=== PATIENT | female | born 1955 | race Caucasian/White ===

== ENCOUNTER → 2019-01-03 | Outpatient (CLI) | payer MEDICARE ==
[~2019-01-03] MED LIST: ASPI81CH PO; BACL10 PO; DIAZ5 PO; TRAM50 PO
== END | disposition home or self-care (01) ==
LOC: PLD 12:14 → LAB SHORT 12:14
DX: D48.5 Neoplasm of uncertain behavior of skin (principal)
CPT/HCPCS: 88305

== ENCOUNTER 2019-08-16 07:00 | Day surgery (SDC) | payer MEDICARE ==
[~2019-08-16] VITALS: Ht 165.1 cm; Wt 104.6 kg
[2019-08-16] MEDS ORDERED: PRED20 (08:17)
--- NOTE | 2019-08-16 08:25 | NUR ---
08/16/19 0825 Khloe Dickerson 1 TRY PASSED OUT RH ARMS MOVING NEEDLE FELL OUT 2 TRY HR GOOD
== END 2019-08-16 09:37 | disposition home or self-care (01) ==
LOC: ORSCSDS 07:00
PROVIDERS: Surgery
PROC: 0DBM8ZX Excision of Descending Colon, Via Natural or Artificial Opening Endoscopic, Diagnostic (ICD-10-PCS; principal; 2019-08-16 08:30)
DX: Z12.11 Encounter for screening for malignant neoplasm of colon (principal); D12.4 Benign neoplasm of descending colon; Z80.0 Family history of malignant neoplasm of digestive organs; Z83.71 Family history of colonic polyps; K64.8 Other hemorrhoids; M79.7 Fibromyalgia; F41.8 Other specified anxiety disorders; E11.9 Type 2 diabetes mellitus without complications; Z79.82 Long term (current) use of aspirin; Z79.84 Long term (current) use of oral hypoglycemic drugs; Z79.899 Other long term (current) drug therapy
CPT/HCPCS: 82947; 88305; J2704; J7120

== ENCOUNTER 2021-07-05 20:45 | Inpatient (IN) | payer MEDICARE ==
[~2021-07-05] VITALS: Ht 165.1 cm; Wt 98.1 kg
[~2021-07-05 20:45] MED LIST changes: +PRED20
[2021-07-05] MEDS ORDERED: DULO60 PO (20:53)
[2021-07-05] MEDS ORDERED: METF500 PO (20:53)
[2021-07-05] MEDS ORDERED: GLIP2.5ER PO (20:54)
[2021-07-05 21:13] LABS: BASOPHILS ABSOLUTE AUTO 0.02 K/mm3 (0.00-0.23); BASOPHILS PERCENT AUTO 0 % (0-2); EOSINOPHILS ABSOLUTE AUTO 0.17 K/mm3 (0.00-0.68); EOSINOPHILS PERCENT AUTO 2 % (0-6); Hematocrit 43.2 % (33.0-51.0); IMMATURE GRAN ABSOLUTE AUTO 0.02 K/mm3 (0.00-0.10); IMMATURE GRAN PERCENT AUTO 0 % (0-1); LYMPHOCYTES ABSOLUTE AUTO 1.86 K/mm3 (0.84-5.20); LYMPHOCYTES PERCENT AUTO 23 % (21-46); MONOCYTES ABSOLUTE AUTO 0.59 K/mm3 (0.16-1.47); MONOCYTES PERCENT AUTO 7 % (4-13); Mean Corpuscular HGB 29.9 pg (26.0-34.0); Mean Corpuscular HGB Conc 32.4 g/dL (31.5-36.5); Mean Corpuscular Volume 92 fL (80-100); Mean Platelet Volume 10.3 fL (9.1-12.4); NEUTROPHILS ABSOLUTE AUTO 5.34 K/mm3 (1.96-9.15); NEUTROPHILS PERCENT AUTO 67 % (41-73); Platelet Count 246 K/mm3 (150-400); RDW Coefficient Variation 12.1 % (11.7-14.2); RDW Standard Deviation 41.1 fL (35.1-46.3); Red Blood Cell Count 4.68 M/mm3 (3.80-5.20)
[2021-07-05 21:35] LABS: Alanine Aminotransfer (ALT/SGP 25 U/L (12-78); Albumin, Blood 3.3 g/dL (3.4-5.0); Albumin/Globulin Ratio 0.8 (0.8-1.8); Alk Phos 59 U/L (50-136); Anion Gap 4 mmol/L (6-16); Aspartate Aminotrans (AST/SGOT 15 U/L (12-37); Bilirubin, Total 0.3 mg/dL (0.1-1.0); Blood Urea Nitrogen 27 mg/dL (8-24); Bun/Creatinine Ratio 40.1 (12.0-20.0); CO2, Blood 30 mmol/L (21-32); Chloride, Blood 104 mmol/L (98-108); Creatinine, Blood 0.67 mg/dL (0.40-1.00); Glomerular Filtration Rate >60 (60-); Glucose, Blood 205 mg/dL (70-99); Potassium, Blood 4.7 mmol/L (3.5-5.5); Sodium, Blood 138 mmol/L (136-145); Total Protein, Blood 7.3 g/dL (6.4-8.2)
[2021-07-06 00:17] LABS: SARS-Cov-2 (COVID-19) PCR, MMC NEGATIVE (NEGATIVE)
[2021-07-06 00:36] LABS: Source, Urine Clean Catch
[2021-07-06 00:38] LABS: Bilirubin, Urine Neg (Neg); Blood, Urine Neg (Neg); Glucose Qualitative, Urine 1+ (Neg); Ketones, Urine Neg (Neg); Leukocyte Esterase, Urine Neg (Neg); Nitrite, Urine Neg (Neg); Protein, Urine Neg (Neg); Urobilinogen, Urine NORM (Normal)
[2021-07-06 00:39] LABS: Appearance, Urine Clear (Clear); Color, Urine Yellow (P-Yellow)
[2021-07-06 04:50] LABS: Hematocrit 44.4 % (33.0-51.0); Hemoglobin 14.4 g/dL (11.5-16.0); Mean Corpuscular HGB 30.2 pg (26.0-34.0); Mean Corpuscular HGB Conc 32.4 g/dL (31.5-36.5); Mean Corpuscular Volume 93 fL (80-100); Mean Platelet Volume 10.4 fL (9.1-12.4); Platelet Count 220 K/mm3 (150-400); RDW Standard Deviation 41.6 fL (35.1-46.3); Red Blood Cell Count 4.77 M/mm3 (3.80-5.20); White Blood Cell Count 12.38 K/mm3 (4.00-11.30)
[2021-07-06 05:16] LABS: Anion Gap 5 mmol/L (6-16); Blood Urea Nitrogen 19 mg/dL (8-24); Bun/Creatinine Ratio 30.9 (12.0-20.0); CO2, Blood 27 mmol/L (21-32); Calcium, Blood 8.1 mg/dL (8.5-10.1); Chloride, Blood 106 mmol/L (98-108); Creatinine, Blood 0.61 mg/dL (0.40-1.00); Glomerular Filtration Rate >60 (60-); Glucose, Blood 199 mg/dL (70-99); Potassium, Blood 4.2 mmol/L (3.5-5.5); Sodium, Blood 138 mmol/L (136-145)
--- NOTE | 2021-07-06 07:34 | NUR ---
SHIFT SUMMARY PT WAS A NEW ADMIT DURING THE NIGHT, ARRIVING ON THE FLOOR AT. SHE WAS ADMITTED WITH A SBO. PT IS A 65 Y/O FEMALE, A&O X 4 WITH ANXIETY. PT C/O PAIN AND NAUSEA THROUGHOUT THE NIGHT WHEN AWAKE, WHICH WAS MILDLY CONTROLLED WITH IV ZOFRAN AND FENTANYL, BUT "IT DOESN'T LAST VERY LONG". PT DID SLEEP OFF AND ON DURING THE NIGHT. NO S/O SOB. VITAL SIGNS STABLE. NO ACUTE CHANGES IN PT CONDITION NOTED SINCE ADMISSION. WILL CONTINUE TO MONITOR AND TREAT PER EMAR UNTIL HAND OFF TO DAY SHIFT RN.
--- NOTE | 2021-07-06 19:48 | NUR ---
PT IN SURGERY AT THIS TIME. AWAITING TO HEAR IF PT WILL RETURN POST-OPERATIVELY.
--- NOTE | 2021-07-06 21:15 | NUR ---
REPORT GIVEN TO KRUNAL, BIOASSAYIST AND PT TO T/F TO ROOM 227 POST OPERATIVEY. BELONGINGS AND MEDS BEING TAKEN TO ROOM BY JACI LEDESMA.
--- NOTE | 2021-07-06 22:02 | NUR ---
PT ARRIVED TO ROOM 227 FROM PACU. PT DROWSY, RESPONDS TO VERBAL STIMULI. VSS, SATS >90% ON 3LO2 NC. PT REP MILD NAUSEA, REP ABD PAIN 5/10, PT REP PAIN IMPROVED SINCE SURGERY. DAVID DRESSING CDI, SEAL AND SX INTACT. ABD SOFT TO PALP, BT HYPO. CALL LIGHT IN REACH. WILL MONITOR AND TX PER ORDERS.
[2021-07-07 04:49] LABS: BASOPHILS ABSOLUTE AUTO 0.02 K/mm3 (0.00-0.23); BASOPHILS PERCENT AUTO 0 % (0-2); EOSINOPHILS PERCENT AUTO 0 % (0-6); Hematocrit 41.8 % (33.0-51.0); Hemoglobin 13.4 g/dL (11.5-16.0); IMMATURE GRAN ABSOLUTE AUTO 0.06 K/mm3 (0.00-0.10); IMMATURE GRAN PERCENT AUTO 0 % (0-1); LYMPHOCYTES ABSOLUTE AUTO 1.34 K/mm3 (0.84-5.20); LYMPHOCYTES PERCENT AUTO 9 % (21-46); MONOCYTES ABSOLUTE AUTO 0.98 K/mm3 (0.16-1.47); MONOCYTES PERCENT AUTO 6 % (4-13); Mean Corpuscular HGB 30.3 pg (26.0-34.0); Mean Corpuscular HGB Conc 32.1 g/dL (31.5-36.5); Mean Corpuscular Volume 95 fL (80-100); Mean Platelet Volume 10.5 fL (9.1-12.4); NEUTROPHILS ABSOLUTE AUTO 12.89 K/mm3 (1.96-9.15); NEUTROPHILS PERCENT AUTO 84 % (41-73); Platelet Count 258 K/mm3 (150-400); RDW Coefficient Variation 12.2 % (11.7-14.2); RDW Standard Deviation 42.8 fL (35.1-46.3); Red Blood Cell Count 4.42 M/mm3 (3.80-5.20); White Blood Cell Count 15.29 K/mm3 (4.00-11.30)
[2021-07-07 05:08] LABS: Anion Gap 5 mmol/L (6-16); Blood Urea Nitrogen 21 mg/dL (8-24); Bun/Creatinine Ratio 28.5 (12.0-20.0); CO2, Blood 29 mmol/L (21-32); Calcium, Blood 8.3 mg/dL (8.5-10.1); Chloride, Blood 105 mmol/L (98-108); Creatinine, Blood 0.74 mg/dL (0.40-1.00); Glomerular Filtration Rate >60 (60-); Glucose, Blood 178 mg/dL (70-99); Potassium, Blood 4.4 mmol/L (3.5-5.5); Sodium, Blood 139 mmol/L (136-145)
--- NOTE | 2021-07-07 06:37 | NUR ---
POD 1 S/P EX LAP. PT VSS T/O NIGHT, O2 TITRATED DOWN TO 2LNC; LUNGS CLEAR/DIM. DAVID DRESSING CDI. PAIN MGD PER EMAR. PT LINDA CL PO, REP MILD NAUSEA EARLY IN NIGHT, ZOFRAN GIVEN PER EMAR; NO EMESIS. PT ANXIOUS AT TIMES, SUPPORT AND EDUCATION PRN.
--- NOTE | 2021-07-07 19:57 | NUR ---
SUMMARY: PT IS POD1 EX LAP. A/O, VSS. SURGICAL SITE/WOUND VAC WNL. PT PAINFUL TODAY AND DIFFICULT TO MANAGE PAIN. 2 NARCO GIVEN Q4, YET PT STILL RATING PAIN /10. DR. RAY NOTIFIED OF THIS THIS AFTERNOON AND DILAUDID ADDED TO EMAR. PT REPORTS 1 MG DILAUDID "IS THE ONLY THING THAT HELPS WITH THE PAIN". PT EDUCATED ABOUT RESPIRATORY STATUS AND GIVING DILAUDID SPARINGLY. PT HAS DENIED NAUSEA AND LINDA CLEAR LIQ DIET. REPORTS PASSING GAS TONIGHT AND "FEELING LIKE SHE MAY HAVE A BM". THIS MORNING PT REPORTED SOME DIZZINESS WITH STANDING, THIS HAS RESLOVED TONIGHT. NO ACUTE CONCERNS AT THIS TIME.
--- NOTE | 2021-07-08 05:00 | NUR ---
SHIFT SUMMARY: PT POD#2 FOR EX LAP. A%O X4. VS WNL. O2 STABLE ON RA. MIDLINE DAVID C/D/I WITHOUT DRG. ACTIVE BT IN UPPER QUADRANTS. ABD SOFT. PT REPORTS PASSING FLATUS. CONCERNED THAT SHE HAS NOT HAD A BM YET. DENIES N/V. PT TOLERATING CLEAR LIQUIDS AND HAS SUGAR FREE DRINKS AT BEDSIDE. ACHS CBG'S. PT REFUSING INSULIN. OUT OF BED TO BATHROOM INDPENDENTLY. PT NOT ANXIOUS THIS SHIFT. BEING MEDICATED WITH 1MG DILAUDID PER EMAR. PT REPORTS NORCO IS INEFFECTIVE AT MANAGING PAIN.
--- NOTE | 2021-07-08 17:44 | NUR ---
Late entry for service provided on 07/07/21. Valerie was resting and appeared comfortable and free of pain. She responded favorably to social attention, theological encouragement, and spiritual direction. She displayed clear signs of engagement and consolability.
--- NOTE | 2021-07-09 05:15 | NUR ---
SHIFT SUMMARY POD3 EXP LAP SMALL BOWEL RESECTION. AOX4. INDEPENDENT IN ROOM. PT HAS MIDLINE DAVID, SUCTIONING WELL. PT REPORTS ABD PAIN, PAIN MANAGED WITH 2 TAB OF PERCOCET X2. PT TOLERATING PO INTAKE. DENIES NAUSEA AND VOMITING. BT PRESENT ON ALL QUAD. PT HAS BEEN PASSING FLATUS. SHE ALSO HAD 1 MED LIQUID BM. PT ALSO AMBULATE IN THE HALLWAY LAST NIGHT BEFORE BED. VSS. AFEBRILE. CBG AT 158 LAST NIGHT. PT REPORTS THAT SHE IS NO LONGER EXPERIENCING DIZZINESS, FEELS WEAKER AND TIRED. ENC TO AMBULATE MORE TO REGAIN STRENGTH. PT IS UP IN CHAIR/RECLINER THIS MORNING AT 0400. CALL LIGHT WITHIN REACH. WILL PROVIDE REPORT TO ONCOMING NURSE.
[2021-07-09] MEDS ORDERED: DOCU100 PO (14:59)
[2021-07-09] MEDS ORDERED: ONDA4ODT MM (14:59)
--- NOTE | 2021-07-09 17:00 | NUR ---
DISCHARGE SUMMARY PT A&OX4, VSS, LEFT FLOOR VIA WC WITH ALL PERSONAL POSSESSIONS INCLUDING DC PACKET AND 1 NARC SCRIPT, 2 SCRIPTS CALLED INTO/TALKED TO PHARMACIST AT [facility]. DC INSTRUCTIONS PROVIDED. PT REP UNDERSTANDING THOSE INSTRUCTIONS. IV DC'D.
== END 2021-07-09 15:45 | disposition home or self-care (01) | DRG 330 ==
LOC: ER 20:45 → MEDS 20:46 → SURS 07-06 21:33
PROVIDERS: Emergency Medicine; Physician Assistant; Surgery; ADMIT Internal Medicine
PROC: 0DB80ZZ Excision of Small Intestine, Open Approach (ICD-10-PCS; principal; 2021-07-06 20:00)
PROC: 0DN80ZZ Release Small Intestine, Open Approach (ICD-10-PCS; 2021-07-06 20:00)
DX: K56.52 Intestinal adhesions [bands] with complete obstruction (principal); R18.8 Other ascites; Z20.822 Contact with and (suspected) exposure to COVID-19; F41.9 Anxiety disorder, unspecified; M79.7 Fibromyalgia; G89.29 Other chronic pain; E11.9 Type 2 diabetes mellitus without complications; M54.9 Dorsalgia, unspecified; Z90.710 Acquired absence of both cervix and uterus; Z90.49 Acquired absence of other specified parts of digestive tract; Z79.899 Other long term (current) drug therapy; Z79.84 Long term (current) use of oral hypoglycemic drugs; Z79.82 Long term (current) use of aspirin; Z88.8 Allergy status to other drugs, medicaments and biological substances
CPT/HCPCS: 36415; 74177; 80048; 80053; 81003; 82947; 84443; 85025; 85027; 88307; 93005; 93010; 96374; 96375; 96376; 99285-25; A9270; G0378; J0690; J1100; J1170; J1650; J1885; J2060; J2250; J2270; J2370; J2405; J2704; J3010; J7030; J7120; Q9967; U0004

== ENCOUNTER → 2021-08-18 | Outpatient (CLI) | payer MEDICARE ==
[~2021-08-18] MED LIST changes: +DOCU100 PO; +DULO60 PO; +GLIP2.5ER PO; +METF500 PO; +ONDA4ODT MM
== END | disposition home or self-care (01) ==
LOC: LAB SHORT 12:07 → LAB 12:07
DX: Z48.01 Encounter for change or removal of surgical wound dressing (principal)
CPT/HCPCS: 87070; 87205

== ENCOUNTER 2022-01-10 17:15 | Inpatient (IN) | payer MEDICARE ==
[~2022-01-10] VITALS: Ht 165.1 cm; Wt 100.7 kg
[~2022-01-10 17:15] MED LIST changes: +KETO10 PO; +METPRE4DP PO
[2022-01-10 18:07] LABS: BASOPHILS ABSOLUTE AUTO 0.05 K/mm3 (0.00-0.23); BASOPHILS PERCENT AUTO 0 % (0-2); EOSINOPHILS ABSOLUTE AUTO 0.11 K/mm3 (0.00-0.68); EOSINOPHILS PERCENT AUTO 1 % (0-6); Hematocrit 44.4 % (33.0-51.0); Hemoglobin 14.5 g/dL (11.5-16.0); IMMATURE GRAN ABSOLUTE AUTO 0.11 K/mm3 (0.00-0.10); IMMATURE GRAN PERCENT AUTO 1 % (0-1); LYMPHOCYTES ABSOLUTE AUTO 2.01 K/mm3 (0.84-5.20); LYMPHOCYTES PERCENT AUTO 12 % (21-46); MONOCYTES ABSOLUTE AUTO 0.78 K/mm3 (0.16-1.47); MONOCYTES PERCENT AUTO 5 % (4-13); Mean Corpuscular HGB 30.1 pg (26.0-34.0); Mean Corpuscular HGB Conc 32.7 g/dL (31.5-36.5); Mean Corpuscular Volume 92 fL (80-100); Mean Platelet Volume 10.4 fL (9.1-12.4); NEUTROPHILS ABSOLUTE AUTO 14.45 K/mm3 (1.96-9.15); NEUTROPHILS PERCENT AUTO 83 % (41-73); Platelet Count 257 K/mm3 (150-400); RDW Coefficient Variation 11.9 % (11.7-14.2); RDW Standard Deviation 40.9 fL (35.1-46.3); Red Blood Cell Count 4.81 M/mm3 (3.80-5.20); White Blood Cell Count 17.51 K/mm3 (4.00-11.30)
[2022-01-10 18:18] LABS: Alanine Aminotransfer (ALT/SGP 21 U/L (12-78); Albumin, Blood 3.5 g/dL (3.4-5.0); Albumin/Globulin Ratio 0.9 (0.8-1.8); Alk Phos 59 U/L (50-136); Anion Gap 5 mmol/L (6-16); Aspartate Aminotrans (AST/SGOT 12 U/L (12-37); Bilirubin, Total 0.3 mg/dL (0.1-1.0); Blood Urea Nitrogen 24 mg/dL (8-24); Bun/Creatinine Ratio 37.5 (12.0-20.0); CO2, Blood 28 mmol/L (21-32); Calcium, Blood 9.3 mg/dL (8.5-10.1); Chloride, Blood 103 mmol/L (98-108); Creatinine, Blood 0.64 mg/dL (0.40-1.00); Globulin, Blood 3.9 g/dL (2.2-4.0); Glomerular Filtration Rate >60 (60-); Glucose, Blood 206 mg/dL (70-99); Potassium, Blood 4.7 mmol/L (3.5-5.5); Sodium, Blood 136 mmol/L (136-145); Total Protein, Blood 7.4 g/dL (6.4-8.2)
[2022-01-10 19:02] LABS: Source, Urine Clean Catch
[2022-01-10 19:06] LABS: Bilirubin, Urine Neg (Neg); Blood, Urine 1+ (Neg); Glucose Qualitative, Urine Neg (Neg); Ketones, Urine Neg (Neg); Leukocyte Esterase, Urine Neg (Neg); Nitrite, Urine Neg (Neg); Protein, Urine Neg (Neg); Urobilinogen, Urine NORM (Normal)
[2022-01-10 19:18] LABS: Appearance, Urine Cloudy (Clear); Color, Urine Pale Yellow (P-Yellow)
[2022-01-10 19:19] LABS: Bacteria Rare /hpf; Squamous Epithelial Cells Rare /hpf (Few); White Blood Cells, Urine 0-2 /hpf (0-5)
--- NOTE | 2022-01-10 22:52 | NUR ---
ADMISSION: PATIENT IS RECIEVED FROM ER, REPORT WAS GIVEN VIA PHONE BY ANGELA HERNANDEZ RN. PATIENT IS ORIENTED TO THE ROOM AND CALL LIMA. REPORTING NAUSEA AND ABD. PAIN. VSS. NG TUBE IS CONNECTED TO ILWS, LR IS INFUSING @ 150MLS/HR. DR PRIEST IS CALLED, TO SOON TO GIVE ZOFRAN. ORDERS WERE OBTAINED TO CHANGE FREQUENCY OF ZOFRAN TO Q2H AND DILAUDID DOSE IS DECREASED TO AVOID OVER SEDATION.
[2022-01-11 05:29] LABS: BASOPHILS ABSOLUTE AUTO 0.04 K/mm3 (0.00-0.23); BASOPHILS PERCENT AUTO 0 % (0-2); EOSINOPHILS PERCENT AUTO 0 % (0-6); Hematocrit 50.6 % (33.0-51.0); Hemoglobin 16.2 g/dL (11.5-16.0); IMMATURE GRAN ABSOLUTE AUTO 0.16 K/mm3 (0.00-0.10); IMMATURE GRAN PERCENT AUTO 1 % (0-1); LYMPHOCYTES ABSOLUTE AUTO 1.06 K/mm3 (0.84-5.20); LYMPHOCYTES PERCENT AUTO 6 % (21-46); MONOCYTES ABSOLUTE AUTO 0.89 K/mm3 (0.16-1.47); MONOCYTES PERCENT AUTO 5 % (4-13); Mean Corpuscular HGB 29.6 pg (26.0-34.0); Mean Corpuscular Volume 93 fL (80-100); Mean Platelet Volume 10.3 fL (9.1-12.4); NEUTROPHILS ABSOLUTE AUTO 15.43 K/mm3 (1.96-9.15); NEUTROPHILS PERCENT AUTO 88 % (41-73); Platelet Count 252 K/mm3 (150-400); RDW Coefficient Variation 12.1 % (11.7-14.2); RDW Standard Deviation 41.7 fL (35.1-46.3); Red Blood Cell Count 5.47 M/mm3 (3.80-5.20); White Blood Cell Count 17.58 K/mm3 (4.00-11.30)
[2022-01-11 05:37] LABS: Alanine Aminotransfer (ALT/SGP 28 U/L (12-78); Albumin, Blood 3.6 g/dL (3.4-5.0); Albumin/Globulin Ratio 0.9 (0.8-1.8); Alk Phos 68 U/L (50-136); Anion Gap 9 mmol/L (6-16); Aspartate Aminotrans (AST/SGOT 13 U/L (12-37); Bilirubin, Total 0.4 mg/dL (0.1-1.0); Blood Urea Nitrogen 25 mg/dL (8-24); CO2, Blood 24 mmol/L (21-32); Calcium, Blood 9.2 mg/dL (8.5-10.1); Chloride, Blood 103 mmol/L (98-108); Creatinine, Blood 0.54 mg/dL (0.40-1.00); Globulin, Blood 4.2 g/dL (2.2-4.0); Glomerular Filtration Rate >60 (60-); Glucose, Blood 232 mg/dL (70-99); Potassium, Blood 4.9 mmol/L (3.5-5.5); Sodium, Blood 136 mmol/L (136-145); Total Protein, Blood 7.8 g/dL (6.4-8.2)
--- NOTE | 2022-01-11 18:51 | NUR ---
SHIFT SUMMARY; PATIENT PULLED HER NG TUBE OUT. CLOSE TO SHIFT CHANGE ATTEMPT TO CALL UNSUCCESSFUL SO IS NOTIFIED. IS NOTIFIED VIA CELL PHONE AND HE SAYS "NOT A PROBLEM. PATIENT IS VERY TEARY. COMPLAINS OF SORE THROAT. STOMACH SOFT NON TENDER. PATIENT PASSING GAS. COMPLAINS OF PAIN TO KNEE AND LOW BACK. TORADOL ADMIN WITH ZOFRAN PRIOR TO SHIFT CHANGE. PAULA PAGAN RN
[2022-01-12 05:04] LABS: Hematocrit 40.5 % (33.0-51.0); Hemoglobin 12.8 g/dL (11.5-16.0); Mean Corpuscular HGB 30.1 pg (26.0-34.0); Mean Corpuscular HGB Conc 31.6 g/dL (31.5-36.5); Mean Corpuscular Volume 95 fL (80-100); Mean Platelet Volume 10.6 fL (9.1-12.4); Platelet Count 195 K/mm3 (150-400); RDW Standard Deviation 41.6 fL (35.1-46.3); Red Blood Cell Count 4.25 M/mm3 (3.80-5.20); White Blood Cell Count 9.76 K/mm3 (4.00-11.30)
[2022-01-12 05:39] LABS: Anion Gap 5 mmol/L (6-16); Blood Urea Nitrogen 22 mg/dL (8-24); Bun/Creatinine Ratio 32.7 (12.0-20.0); CO2, Blood 27 mmol/L (21-32); Calcium, Blood 8.4 mg/dL (8.5-10.1); Chloride, Blood 106 mmol/L (98-108); Creatinine, Blood 0.67 mg/dL (0.40-1.00); Glomerular Filtration Rate >60 (60-); Glucose, Blood 158 mg/dL (70-99); Potassium, Blood 4.2 mmol/L (3.5-5.5); Sodium, Blood 138 mmol/L (136-145)
--- NOTE | 2022-01-12 06:21 | NUR ---
SHIFT SUMMARY: PATIENT HAS HYPOACTIVE BS, ABD. IS SOFTLY DISTENDED AND PATIENT IS PASSING FLATUS. PAIN IS MUCH IMPROVED UNTIL THIS MORNING. PATIENT REPORTED A CRAMPING PAIN IN LOWER ABD. 8/10. PATIENT IS TEARFUL AND EMOTIONALLY LIABLE. PRN DILAUDID WAS GIVEN X1 WITH GOOD EFFECT. LR IS INFUSING, PATIENT IS NPO BLOOD GLUCOSE CHECKS Q 6 H, 146 AND 154, NO COVERAGE GIVEN PER SCALE.
--- NOTE | 2022-01-12 18:25 | NUR ---
SHIFT SUMMARY; PATIENT HAD GASTROGRAPHEN (SP) STUDY THIS AFTERNOON. AFTER LAST ROUND OF XRAYS SHE HAD LARGE BOWEL MOVEMENT AND PROCEDED OVER THE NEXT 45 MINUTES TO HAVE 5 ADDITIONAL BOWEL MOVEMENTS. HER LAST FEW STOOLS WERE VERY LOOSE AND LIQUID. CALL TO DR. BEASLEY AND TO . WAS IN SURGERY HOWEVER PUNCHING MACHINE OPERATOR PASSED ON INFORMATION AND DR. SHELBY SAID THAT PATIENT COULD EAT "WHATEVER SHE WANTED TOO NOW" DINNER TRAY ORDERED FOR PATIENT AND SHE ATE 50% PATIENT COMPLAINS THIS BROOKE OF CRAMPING IN HER ABDOMEN AND HER STOMACH. CHEM BG REQUIRED NO COVERAGE DURING THE DAY. SHE IS AO X 4. HAS EPISODES OF ANXIETY NOTED AND WAS MEDICATED WITH LORAZEPAM 1MG IVP. WILL CONTINUE TO MONITOR THIS PATIENT CLOSELY UNTIL REPORT AND HAND OFF TO NOC SHIFT RN.
--- NOTE | 2022-01-13 04:38 | NUR ---
PATIENT IS A&O X4. POSSIBLE DISCHARGE TODAY PER MD REVIEW. PATIENT HAS ONGOING LOWER ABDOMEN PAIN DUR TO GASTROGRAFIN STUDY PER PATIENTS DIAGNOSIS OF SBO. PATIENT SLEPT MOST OF THE NIGHT, NO NEW CONCERNS. PRN TORADOL GIVEN PER PATIENT REQUEST FOR PAIN. CONTINUOUS LACTATED RINGER DISCONTINUED BY MD. DISCHARGE PENDING UNTIL MD APPROVAL WILL UPDATE ONCOMING NURSE UPON ARRIVAL.
--- NOTE | 2022-01-13 05:03 | NUR ---
UPON ARRIVAL REPORT GIVEN PATIENT WAS IN BED IN ROOM, ALERT & ORIENTED X4. PRN MEDICATIONS ZANAFLEX, PERCOSET, XANAX GIVEN. PATIENT RECIEVED VANCOMYCIN AT 2200. NO SIGNS OR SYMPOMS NOTED FROM VANCO INFUSION. PATIENT IN BED AND SLEPT FOR THE ENTIRE NIGHT UNTIL LAB DRAW AT 5 AM. WILL REPORT TO ONCOMING NURSE UPON ARRIVAL.
--- NOTE | 2022-01-13 08:44 | NUR ---
PATIENT LEFT AMA AT 0845. EDUCATION PROVIDED ON RISKS R/T LEAVING AMA. PT VERBALIZED UNDERSTANDING, AND STATED THAT SHE HAD APPTS TODAY, AND COULD NOT WAIT AROUND FOR THE MD TO ROUND. MED AWARE OF PT DECSION TO LEAVE AMA. IV REMOVED, PT SIGNED AMA FORM, RN SIGNED WITNESS. PT LEFT UNIT AT 0845.
== END 2022-01-13 08:44 | disposition left against medical advice (07) | DRG 390 ==
LOC: ER 17:15 → SURS 21:23 → MEDS 22:14
PROVIDERS: Emergency Medicine; Internal Medicine; ADMIT Internal Medicine
DX: K56.609 Unspecified intestinal obstruction, unspecified as to partial versus complete obstruction (principal); E66.9 Obesity, unspecified; I10 Essential (primary) hypertension; F41.9 Anxiety disorder, unspecified; M79.7 Fibromyalgia; G89.4 Chronic pain syndrome; E11.9 Type 2 diabetes mellitus without complications; Z68.35 Body mass index [BMI] 35.0-35.9, adult; Z90.49 Acquired absence of other specified parts of digestive tract; Z90.710 Acquired absence of both cervix and uterus; Z79.84 Long term (current) use of oral hypoglycemic drugs; Z79.899 Other long term (current) drug therapy
CPT/HCPCS: 36415; 71045; 74177; 74250; 80048; 80053; 81001; 82947; 83690; 85025; 85027; 93005; 93010; 96374; 96375; 99285-25; A9270; J1170; J1885; J2060; J2270; J2405; J7120; Q9967

== ENCOUNTER 2022-07-29 07:48 | Day surgery (SDC) | payer MEDICARE ==
[~2022-07-29] VITALS: Ht 165.1 cm; Wt 96.4 kg
[~2022-07-29 07:48] MED LIST changes: +ONDA4ODT; +Percocet 5-3251 EACH PO
--- NOTE | 2022-07-29 08:46 | NUR ---
[facility] in [facility] warming gown applied. Surgical site prepped with 2% Chlorhexidine cloth wipe. Patient states colon prep results clear. History, Chart, Medications and Allergies reviewed before start of procedure.Lungs clear T/O to Auscultation. Pre-Op teaching done. Pt verbalizes understanding. Patient States Post-Procedure ride home has been arranged.
--- NOTE | 2022-07-29 09:22 | NUR ---
07/29/22 0922 Mehnaz Hughes HISTORY, CHART, MEDICATIONS AND ALLERGIES REVIEWED BEFORE START OF PROCEDURE. PATIENT CONFIRMS NPO STATUS AND AGREES WITH SCHEDULED PROCEDURE. 3-LEAD EKG REVIEWED WITH PHYSICIAN PRIOR TO START OF PROCEDURE. MONITOR INTACT WITH CONTINUOUS PULSE OXIMETRY,CAPNOGRAPHY, 3-LEAD EKG, INTERMITTENT BP. SUPPLEMENTAL O2 TO BE TITRATED THROUGHOUT PROCEDURE TO MAINTAIN O2 SATURATION ABOVE 90%. PATIENT DETERMINED TO BE ASA APPROPRIATE FOR PROPOFOL SEDATION PRIOR TO START OF PROCEDURE BY
--- NOTE | 2022-07-29 10:28 | NUR ---
Patient up to Ambulate independently. Gait steady. Discharge instructions reviewed with patient. Patient verbalizes understanding. Copy given to patient to take home. Patient States Post-Procedure ride home has been arranged. Discharged via wheelchair to private car for ride home.
== END 2022-07-29 10:29 | disposition home or self-care (01) ==
LOC: ORSCMMR 07:48 → ORD 08:45 → ORSCMMR 10:29
PROVIDERS: Surgery
PROC: 0DB78ZX Excision of Stomach, Pylorus, Via Natural or Artificial Opening Endoscopic, Diagnostic (ICD-10-PCS; principal; 2022-07-29 08:45)
PROC: 0DB48ZX Excision of Esophagogastric Junction, Via Natural or Artificial Opening Endoscopic, Diagnostic (ICD-10-PCS; principal; 2022-07-29 08:45)
PROC: 0DBM8ZX Excision of Descending Colon, Via Natural or Artificial Opening Endoscopic, Diagnostic (ICD-10-PCS; principal; 2022-07-29 08:45)
PROC: 0DB98ZX Excision of Duodenum, Via Natural or Artificial Opening Endoscopic, Diagnostic (ICD-10-PCS; principal; 2022-07-29 08:45)
DX: R19.4 Change in bowel habit (principal); R10.84 Generalized abdominal pain; K21.9 Gastro-esophageal reflux disease without esophagitis; K29.80 Duodenitis without bleeding; D12.4 Benign neoplasm of descending colon; K29.70 Gastritis, unspecified, without bleeding; E78.5 Hyperlipidemia, unspecified; F32.A Depression, unspecified; E11.9 Type 2 diabetes mellitus without complications; Z79.84 Long term (current) use of oral hypoglycemic drugs; Z79.899 Other long term (current) drug therapy
CPT/HCPCS: 82947; 88305; 88342; J2250; J2704; J7120

== ENCOUNTER → 2022-12-10 | Outpatient (CLI) | payer MEDICARE ==
[2022-12-10 18:30] LABS: U Amphetamine Screen Not Detected; U Barbituate Screen Not Detected; U Benzodiazapine Screen Not Detected; U Buprenorphine Screen Not Detected; U Cannabinoids Screen Not Detected; U Cocaine Screen Not Detected; U Methadone Screen Not Detected; U Methamphetamine Screen Not Detected; U Opiates Screen Not Detected; U Oxycodone Screen DETECTED; U Phencyclidine Screen Not Detected; U Propoxyphene Screen Not Detected
== END | disposition home or self-care (01) ==
LOC: LAB SHORT 16:28
PROVIDERS: Physician Assistant
DX: Z51.81 Encounter for therapeutic drug level monitoring (principal); Z79.891 Long term (current) use of opiate analgesic

== ENCOUNTER 2023-05-31 03:54 | Observation (INO) | payer MEDICARE ==
[~2023-05-31] VITALS: Ht 165.1 cm; Wt 94.4 kg
[2023-05-31 07:02] LABS: BASOPHILS ABSOLUTE AUTO 0.04 K/mm3 (0.00-0.23); BASOPHILS PERCENT AUTO 0 % (0-2); EOSINOPHILS ABSOLUTE AUTO 0.02 K/mm3 (0.00-0.68); EOSINOPHILS PERCENT AUTO 0 % (0-6); Hemoglobin 15.3 g/dL (11.5-16.0); IMMATURE GRAN ABSOLUTE AUTO 0.05 K/mm3 (0.00-0.10); IMMATURE GRAN PERCENT AUTO 0 % (0-1); LYMPHOCYTES ABSOLUTE AUTO 1.04 K/mm3 (0.84-5.20); LYMPHOCYTES PERCENT AUTO 8 % (21-46); MONOCYTES ABSOLUTE AUTO 0.45 K/mm3 (0.16-1.47); MONOCYTES PERCENT AUTO 3 % (4-13); Mean Corpuscular HGB 30.6 pg (26.0-34.0); Mean Corpuscular Volume 90 fL (80-100); Mean Platelet Volume 10.5 fL (9.1-12.4); NEUTROPHILS ABSOLUTE AUTO 11.61 K/mm3 (1.96-9.15); NEUTROPHILS PERCENT AUTO 88 % (41-73); Platelet Count 232 K/mm3 (150-400); RDW Coefficient Variation 11.9 % (11.7-14.2); RDW Standard Deviation 39.3 fL (35.1-46.3); White Blood Cell Count 13.21 K/mm3 (4.00-11.30)
[2023-05-31 07:23] LABS: Albumin, Blood 3.6 g/dL (3.4-5.0); Albumin/Globulin Ratio 0.9 (0.8-1.8); Bilirubin, Direct 0.1 mg/dL (0.0-0.3); Bilirubin, Indirect 0.5 mg/dL (0.1-0.7); Bilirubin, Total 0.6 mg/dL (0.1-1.0); Bun/Creatinine Ratio 44.3 (12.0-20.0); Calcium, Blood 9.3 mg/dL (8.5-10.1); Creatinine, Blood 0.61 mg/dL (0.40-1.00); Globulin, Blood 4.2 g/dL (2.2-4.0); Magnesium, Blood 2.2 mg/dL (1.6-2.4); Total Protein, Blood 7.8 g/dL (6.4-8.2)
[2023-05-31 10:07] VITALS: BP 129/83
--- NOTE | 2023-05-31 10:08 | NUR ---
ARRIVAL PATIENT TO ROOM 231 FROM ED VIA W/C. SBA TO BATHROOM ON ARRIVAL, TOLERATED WELL. REPORTS MIILD PAIN/DISCOMFORT TO ABDOMEN, SOFT BUT TENDER ON PALPATION, HYPOACTIVE BOWEL TONES, REPORTS FLATUS. A&O X4, LUNGS CLEAR, VSS ON RA. ORIENTED TO ROOM & UNIT. FIRE RISK SAFETY DISCUSSED W/ PATIENT, HANDOUT GIVEN, PATIENT DENIES ANY SOURCE OF IGNITION AT THIS TIME. CALL LIGHT IN REACH.
[2023-05-31] MEDS ORDERED: CELE200 PO (13:41)
[2023-05-31] MEDS ORDERED: TRAM50 PO (13:42)
[2023-05-31 13:50] LABS: Source, Urine Straight Cath
[2023-05-31 14:07] LABS: Appearance, Urine Clear (Clear); Bilirubin, Urine Neg (Neg); Blood, Urine Neg (Neg); Color, Urine Yellow (P-Yellow); Glucose Qualitative, Urine 4+ (Neg); Ketones, Urine 2+ (Neg); Leukocyte Esterase, Urine Neg (Neg); Nitrite, Urine Neg (Neg); Protein, Urine 1+ (Neg); Urobilinogen, Urine NORM (Normal)
[2023-05-31 15:05] VITALS: BP 119/73
--- NOTE | 2023-05-31 17:44 | NUR ---
SHIFT SUMMARY NO ACUTE CHANGES THIS SHIFT. MODERATE PAIN TO ABDOMEN T/O SHIFT, PATIENT DECLINES RELIEF FROM PAIN MEDICATIONS, STATES "NOT A LOT HELPS", THIS RN HAS BEEN IN COMMUNICATION W/ MD AND ADJUSTING ORDERS NEEDED. K PAD TO ABDOMEN. PATIENT INDEPENDENT IN ROOM TO BATHROOM, REPOSITIONS INDEPENDENTLY. PATIENT HAS BEEN NPO EXCEPT ICE CHIPS, PER ORDERS. MILD NAUSEA OFF AND ON, NO EMESIS REPORTED. REPORTS FLATUS, NO BM. CALL LIGHT IN REACH.
[2023-05-31 20:20] VITALS: BP 123/67
[2023-06-01 04:56] LABS: BASOPHILS ABSOLUTE AUTO 0.02 K/mm3 (0.00-0.23); BASOPHILS PERCENT AUTO 0 % (0-2); EOSINOPHILS PERCENT AUTO 3 % (0-6); Hematocrit 39.6 % (33.0-51.0); Hemoglobin 13.1 g/dL (11.5-16.0); IMMATURE GRAN ABSOLUTE AUTO 0.01 K/mm3 (0.00-0.10); IMMATURE GRAN PERCENT AUTO 0 % (0-1); LYMPHOCYTES ABSOLUTE AUTO 2.13 K/mm3 (0.84-5.20); LYMPHOCYTES PERCENT AUTO 32 % (21-46); MONOCYTES PERCENT AUTO 9 % (4-13); Mean Corpuscular HGB 30.3 pg (26.0-34.0); Mean Corpuscular HGB Conc 33.1 g/dL (31.5-36.5); Mean Corpuscular Volume 92 fL (80-100); Mean Platelet Volume 10.1 fL (9.1-12.4); NEUTROPHILS ABSOLUTE AUTO 3.64 K/mm3 (1.96-9.15); NEUTROPHILS PERCENT AUTO 55 % (41-73); Platelet Count 199 K/mm3 (150-400); RDW Coefficient Variation 11.9 % (11.7-14.2); Red Blood Cell Count 4.32 M/mm3 (3.80-5.20)
[2023-06-01 05:10] VITALS: BP 123/63
[2023-06-01 05:15] VITALS: BP 123/63
[2023-06-01 05:43] LABS: Bun/Creatinine Ratio 28.3 (12.0-20.0); Calcium, Blood 7.8 mg/dL (8.5-10.1); Creatinine, Blood 0.64 mg/dL (0.40-1.00); Potassium, Blood 4.4 mmol/L (3.5-5.5)
--- NOTE | 2023-06-01 06:36 | NUR ---
SHIFT SUMMARY ADMIT FOR ABD PAIN/ RESULING IN SBO DX. PT NPO W/ ICE CHIPS ONLY W/ STRICT I&O. A&OX4, PT REPORTS SOME MEDICAL EXPERIENCE AND REQUESTS LOTS OF INFORMATION TO UNDERSTAND CURRENT CONDITION. PT MEDICATED FOR 5/10 PAIN 1X W/ TORADOL AND ZOFRAN. PT REPORTS NO RELIEF FROM PREVIOUS MORPHINE DOSE. PT INDEPENDANT IN ROOM/ BATHROOM/ HALLS W/ WALKS IN PULIDO IN HOPES TO INITIATE BOWEL ACTIVITY. PT DENIES SOB, N/T, CP. HYPOACTIVE RLQ, W/ PT REPORTS OF PASSING GAS. PT AWAITING SURGICAL CONSULT AND UPDATES. IGNITION ASSESSMENT COMPLETED W/ PT UNDERSTANDING OF FACILITY POLICIES REGARDING SMOKING AND FLAMABLE DEVICES.
[2023-06-01 07:32] VITALS: BP 138/77
--- NOTE | 2023-06-01 10:02 | NUR ---
DR. BARRY ORDERED SMALL BOWEL FOLLOW THROUGH FOR PT VIA NG TUBE. PT DECLINED NG TUBE AND WAS EDUCATED REGARDING RISKS OF GASTROGRAPHIN WITHOUT HAVING AN NG TUBE. PT REPORTED UNDERSTANDING RISKS BUT ELECTED TO HAVE SMALL BOWEL FOLLOW THROUGH WITHOUT NG TUBE. FOOD STOREROOM CLERK NOTIFIED AND DR. BARRY NOTIFIED. OK TO CONTINUE WITH SMALL BOWEL FOLLOW THROUGH PER DR. BARRY. NG INSERTION SUPPLIES COLLECTED AND PLACED OUTSIDE ROOM SO THEY ARE AVALIABLE IF NEEDED FOR URGENT PLACEMENT OF NG TUBE. SUCTION CONNECTOR IN ROOM AND FUNCTIONING. PT EDUCATED ABOUT NG TUBE IN THE EVENT OF NEED FOR URGENT PLACEMENT. PT APPEARED PLEASED WITH PLAN. PT TAKEN DOWN FOR SMALL BOWEL FOLLOW THROUGH AT 1000.
--- NOTE | 2023-06-01 13:05 | NUR ---
NEED FOR DISCHARGE ORDER REACHED OUT TO DR. ONOFRE COVERING FOR DR. HENDRICKS REGARDING NEED FOR DISCHARGE ORDER. PT HAD SMALL BOWEL FOLLOW THROUGH AND IS NOW HAVING BMS. DR. ONOFRE NOTIFIED THAT PT HAS BEEN GETTING INSULIN COVERAGE FOR BLOOD GLUCOSE WHILE IN THE HOSPITAL AND IS CURRENTLY NOT TAKING ANY MEDICATION TO COVER BLOOD GLUCOSE LEVELS AT HOME.
[2023-06-01] MEDS ORDERED: ONDA4ODT PO (13:42)
--- NOTE | 2023-06-01 13:53 | NUR ---
PER DR. MESA AND DR. ONOFRE PT IS OK TO DISCHARGE HOME AND F/U WITH HER PCP TOMORROW REGARDING BLOOD GLUCOSE MANAGEMENT. PT REPORTED TO THIS RN THAT SHE HAS AN APPOINTMENT TOMORROW.
[2023-06-01 15:23] VITALS: BP 114/72
--- NOTE | 2023-06-01 15:33 | NUR ---
PT IS HAVING MULTIPLE BMS AFTER SMALL BOWEL FOLLOW THROUGH. SHE IS TOLERATING A FULL LIQUID DIET. PT WAS PROVIDED WITH WRITTEN AND VERBAL DISCHARGE INSTRUCTIONS, SHE REPORTED UNDERSTANDING. VSS AT THE TIME DISCHARGE INSTRUCTIONS WERE PROVIDED. PT IS WAITING FOR HER RIDE HOME TO ARRIVE.
--- NOTE | 2023-06-01 15:59 | NUR ---
DISCHARGE PT DISCHARGED HOME AT APPROXIMATELY 1545.
== END 2023-06-01 15:55 | disposition home or self-care (01) ==
LOC: ER 03:54 → SURS 03:55
PROVIDERS: Family Medicine; Student in an Organized Health Care Education/Training Program; ADMIT Hospitalist
DX: K56.600 Partial intestinal obstruction, unspecified as to cause (principal); K66.0 Peritoneal adhesions (postprocedural) (postinfection); G89.29 Other chronic pain; K76.0 Fatty (change of) liver, not elsewhere classified; R77.1 Abnormality of globulin; D72.828 Other elevated white blood cell count; K56.609 Unspecified intestinal obstruction, unspecified as to partial versus complete obstruction; E11.9 Type 2 diabetes mellitus without complications; N19 Unspecified kidney failure; Z90.710 Acquired absence of both cervix and uterus; Z90.49 Acquired absence of other specified parts of digestive tract; Z88.8 Allergy status to other drugs, medicaments and biological substances
CPT/HCPCS: 36415; 74177; 74250; 80048; 80076; 82947; 83605; 83690; 83735; 85025; 93005; 93010; 96361; 96374-59; 96375; 96376; 99285-25; G0378; J1815; J1885; J2270; J2405; J7030; J7120; Q9967